=== PATIENT | female | born 1935 | race Caucasian/White ===

== ENCOUNTER 2016-10-09 08:39 | Observation (INO) | payer OTHER ==
--- NOTE | 2016-10-09 09:01 | CPEKG ---
Heart Rate: 91 RR Interval: 659 P-R Interval: 180 QRSD Interval: 80 QT Interval: 332 QTC Interval: 409 P [place]: 47 QRS [place]: -62 T Wave [place]: -18 EKG Severity - ABNORMAL ECG - EKG Impression: SINUS RHYTHM EKG Impression: MULTIPLE VENTRICULAR PREMATURE COMPLEXES EKG Impression: PROBABLE LEFT ATRIAL ABNORMALITY EKG Impression: INFERIOR INFARCT, AGE INDETERMINATE EKG Impression: NONSPECIFIC T ABNORMALITIES, ANTERIOR LEADS Electronically Signed By: Cliff Ulloa 09-Oct-2016 13:56:46
--- NOTE | 2016-10-09 09:03 | EDPHY ---
H & P Stated Complaint: Fever,coughing yellow mucous,h/a,sinus pressure; sxs x 3 days - Personal History Current Tetanus Diphtheria and Acellular Pertussis (TDAP): Yes - Medical/Surgical History Other PMH: osteoporosis - Social History Smoking Status: Current every day smoker Constitutional: Initial Vital Signs Temperature (C) 37.3 C 10/09/16 08:41 Heart Rate 85 10/09/16 08:41 Respiratory Rate 18 10/09/16 08:41 Blood Pressure 123/61 H 10/09/16 08:41 O2 Sat (%) 92 10/09/16 08:41 O2 Delivery Mode Room Air O2 (L/minute) 3 Allergies/Adverse Reactions: No Known Allergies Allergy (Unverified 10/09/16 08:45) Home Medications: Medication Instructions Recorded Acetaminophen [Tylenol ES 500 mg 1,000 mg PO Q6H PRN 10/09/16 (*)] Alendronate Sodium [Fosamax 70 MG 70 mg PO SA@0700 10/09/16 (*)] guaiFENesin/PSEUDOEPHEDRNE HCL 1 each PO DAILY 10/09/16 [Mucinex D ER Tablet] Medical Decision Making - Diagnostics Imaging Results: Imaging Impressions Chest X-Ray 10/09/16 09:24 Impression: 1. Diffuse interstitial lung disease, new since 2006. Consider high resolution noncontrast chest CT for further evaluation. 2. Cardiomegaly without failure. Imaging: I viewed and interpreted images myself ED Course/Re-evaluation: CHIEF COMPLAINT: Cough, malaise HISTORY OF PRESENT ILLNESS: The patient is an 80 y/o female arriving with her daughter complaining of worsening cough and malaise for the last 3 days. She has been traveling on several flights recently and returned last night. She describes a productive cough with "ugly" mucus and associated fever. She denies chest pain. She does not use home O2. She is normally healthy and has a medical history only significant for osteoporosis. REVIEW OF SYSTEMS: A 10 point review of systems was performed and is negative with the exception of the elements mentioned in the history of present illness. PHYSICAL EXAM: General Appearance: Alert, elderly, well-hydrated, appropriate, and actively coughing. SpO2 90% on 2LPM. Head: Atraumatic without scalp tenderness or obvious injury Eyes: Pupils equal, round, reactive to light and accommodation, EOMI, no trauma , no injection. Ears: Clear bilaterally, no perforation, normal landmarks Nose: Atraumatic, no rhinorrhea, clear. Throat: There is no erythema or exudates, no lesions, normal tonsils, mucus membranes moist. Neck: Supple, non-tender, no lymphadenopathy. Respiratory: No retractions, no distress, no wheezes, and no accessory muscle use. Consolidated, decreased breath sounds particularly at right base, diffuse rhonchi. Cardiovascular: Regular rate and rhythm, no murmurs, rubs, or gallops. Good capillary refill all extremities. Gastrointestinal: Abdomen is soft, non-tender, non-distended, no masses, no rebound, no guarding, no peritoneal signs. Musculoskeletal: Normal active ROM of all extremities, atraumatic. Neurological: Alert, appropriate, and interactive. Nonfocal neuro exam. Skin: No rashes, good turgor, no nodules on palpation. PAST MEDICAL HISTORY: Osteoporosis PAST SURGICAL HISTORY: Denies SOCIAL HISTORY: Daughters at bedside. Smoker. DIAGNOSTICS/PROCEDURES/CRITICAL CARE TIME: Chest x-ray: pneumonia right base The 12 lead EKG was interpreted by myself. Sinus mechanism rate 91 with inverted T waves in precordial leads. No prior EKGs available for comparison. See hard copy and/or "tracemaster" electronic copy for interpretation. DIFFERENTIAL DIAGNOSIS: The differential diagnosis for the patient's fever and hypoxemia included but was not limited to pneumonia, urinary tract infection, viral syndrome, meningitis, sepsis, myocardial infarction, acute mountain sickness, high altitude pulmonary edema, congestive heart failure, and pulmonary embolus. MEDICAL DECISION MAKING: This is a quite healthy 80 y/o female presenting with a 3-day history of worsening productive cough, malaise, and fever. She has diffuse rhonchi and decreased breath sounds worst in the right base on auscultation. She is hypoxemia at 90% on 2LPM O2. She does not meet sepsis criteria at this time. Plan for IV, labs including cultures and lactate, duo neb, chest x-ray, and EKG. Chest x-ray shows right-sided pneumonia. 750mg IV Levaquin administered. Patient will require admission for hypoxemia and pneumonia. Spoke with hospitalist service. Dr. Kan accepts admission for hypoxemia and pneumonia. Discussed work up and plan for admission with the patient. She agrees with plan. - Data Points Laboratory Results: Laboratory Results 10/09/16 09:12 10/09/16 09:12 10/09/16 10/09/16 10/09/16 09:22 09:12 09:12 WBC RBC Hgb Hct MCV MCH MCHC RDW Plt Count MPV Neut % (Auto) Lymph % (Auto) [place] % (Auto) Eos % (Auto) Baso % (Auto) Nucleat RBC Rel Count Absolute Neuts (auto) Absolute Lymphs (auto) Absolute Monos (auto) Absolute Eos (auto) Absolute Basos (auto) Absolute Nucleated RBC Immature Gran % Immature Gran # PT 14.4 SEC SEC (12.0-15.0) INR 1.13 (0.83-1.16) APTT 33.6 SEC SEC (23.0-38.0) VBG Lactic Acid 2.2 mmol/L H mmol/L (0.7-2.1) Sodium 136 mEq/L mEq/L (134-144) Potassium 4.1 mEq/L mEq/L (3.5-5.2) Chloride 102 mEq/L mEq/L (97-110) Carbon Dioxide 23 mEq/l mEq/l (22-31) Anion Gap 11 mEq/L mEq/L (8-16) BUN 15 mg/dL mg/dL (7-23) Creatinine 0.7 mg/dL mg/dL (0.6-1.0) Estimated GFR > 60 Glucose 158 mg/dL H mg/dL (70-100) Calcium 9.2 mg/dL mg/dL (8.5-10.4) Total Bilirubin 0.9 mg/dL mg/dL (0.1-1.4) 10/09/16 09:12 WBC 9.28 10^3/uL 10^3/uL (3.80-9.50) RBC 4.47 10^6/uL 10^6/uL (4.18-5.33) Hgb 14.1 g/dL g/dL (12.6-16.3) Hct 42.1 % % (38.0-47.0) MCV 94.2 fL fL (81.5-99.8) MCH 31.5 pg pg (27.9-34.1) MCHC 33.5 g/dL g/dL (32.4-36.7) RDW 12.2 % % (11.5-15.2) Plt Count 216 10^3/uL 10^3/uL (150-400) MPV 9.8 fL fL (8.7-11.7) Neut % (Auto) 83.3 % H % (39.3-74.2) Lymph % (Auto) 8.8 % L % (15.0-45.0) [place] % (Auto) 7.1 % % (4.5-13.0) Eos % (Auto) 0.1 % L % (0.6-7.6) Baso % (Auto) 0.3 % % (0.3-1.7) Nucleat RBC Rel Count 0.0 % % (0.0-0.2) Absolute Neuts (auto) 7.72 10^3/uL H 10^3/uL (1.70-6.50) Absolute Lymphs (auto) 0.82 10^3/uL L 10^3/uL (1.00-3.00) Absolute Monos (auto) 0.66 10^3/uL 10^3/uL (0.30-0.80) Absolute Eos (auto) 0.01 10^3/uL L 10^3/uL (0.03-0.40) Absolute Basos (auto) 0.03 10^3/uL 10^3/uL (0.02-0.10) Absolute Nucleated RBC 0.00 10^3/uL 10^3/uL (0-0.01) Immature Gran % 0.4 % % (0.0-1.1) Immature Gran # 0.04 10^3/uL 10^3/uL (0.00-0.10) PT INR APTT VBG Lactic Acid Sodium Potassium Chloride Carbon Dioxide Anion Gap BUN Creatinine Estimated GFR Glucose Calcium Total Bilirubin Medications Given: Discontinued Medications Albuterol/Ipratropium (Duoneb) 3 ml IH EDNOW ONE Stop: 10/09/16 09:20 Last Admin: 10/09/16 09:38 Dose: 3 ml Levofloxacin/Dextrose (Levaquin 750 Mg (Premix)) 150 mls @ 100 mls/hr IV EDNOW ONE PRN Reason: Protocol Stop: 10/09/16 10:52 Last Admin: 10/09/16 10:45 Dose: 150 mls Departure - Departure Disposition: [facility] Inpatient Acute Clinical Impression: Hypoxemia Pneumonia Qualifiers: Pneumonia type: due to unspecified organism Laterality: right Lung location: lower lobe of lung Qualified Code(s): J18.1 - Lobar pneumonia, unspecified organism Condition: Fair Report Scribed for: Cliff Ulloa Report Scribed by: Rachel Clark Date of Report: 10/09/16 Time of Report: 09:00
[2016-10-09] MEDS ORDERED: IPRATROPIUM/ALBUTEROL 3 ML DEYVIAL IH ONE (09:19)
[2016-10-09 09:22] LABS: % IMMATURE GRANULYOCYTES 0.4 % (0.0-1.1); ABSOLUTE IMMATURE GRANULOCYTES 0.04 10^3/uL (0.00-0.10); ADD DIFF? NO; ADD MORPH? NO; ADD SCAN? NO; ATYPICAL LYMPHOCYTE FLAG 0 (0-99); FRAGMENT RBC FLAG 0 (0-99); HEMATOCRIT 42.1 % (38.0-47.0); HEMOGLOBIN 14.1 g/dL (12.6-16.3); LEFT SHIFT FLG 10 (0-99); LIPEMIA HEMOLYSIS FLAG 80 (0-99); MEAN CELL HEMOGLOBIN 31.5 pg (27.9-34.1); MEAN CELL HEMOGLOBIN CONCENTR. 33.5 g/dL (32.4-36.7); MEAN CELL VOLUME 94.2 fL (81.5-99.8); MEAN PLATELET VOLUME 9.8 fL (8.7-11.7); PLATELET CLUMPS FLAG 0 (0-99); PLATELET COUNT 216 10^3/uL (150-400); RED BLOOD CELL COUNT 4.47 10^6/uL (4.18-5.33); RED CELL DISTRIBUTION WIDTH 12.2 % (11.5-15.2)
[2016-10-09 09:30] LABS: INR 1.13 (0.83-1.16); PROTIME(PATIENT) 14.4 SEC (12.0-15.0)
[2016-10-09 09:31] LABS: APTT 33.6 SEC (23.0-38.0)
[2016-10-09 09:33] LABS: ANION GAP 11 mEq/L (8-16); BILIRUBIN,TOTAL 0.9 mg/dL (0.1-1.4); CALCIUM 9.2 mg/dL (8.5-10.4); CARBON DIOXIDE 23 mEq/l (22-31); CHLORIDE 102 mEq/L (97-110); CREATININE 0.7 mg/dL (0.6-1.0); GLOMERULAR FILTRATION RATE > 60; GLUCOSE 158 mg/dL (70-100); POTASSIUM 4.1 mEq/L (3.5-5.2); SODIUM 136 mEq/L (134-144)
[2016-10-09] MEDS ORDERED: ACETAMINOPHEN 500 MG TAB ONE (10:28)
[2016-10-09 10:34] LABS: LACGHOST ORDER
[2016-10-09] MEDS ORDERED: ACETAMINOPHEN 325 MG TAB PO PRN (12:47)
[2016-10-09] MEDS ORDERED: ONDANSETRON DISINTEGRATING 4 MG TAB PO PRN (12:47)
[2016-10-09] MEDS ORDERED: ONDANSETRON 4 MG/2 ML VIAL IVP PRN (12:47)
[2016-10-09] MEDS ORDERED: ZOLPIDEM TARTRATE 5 MG TAB PO PRN (12:47)
[2016-10-09] MEDS: IPRATROPIUM/ALBUTEROL 3 ML DEYVIAL IH SCH ×2 (18:44→21:59)
[2016-10-09] MEDS ORDERED: SODIUM CL NASAL 45 ML BTL EACHNARE PRN (19:39)
[2016-10-10] MEDS: IPRATROPIUM/ALBUTEROL 3 ML DEYVIAL IH SCH ×2 (06:16→13:20)
[2016-10-10] MEDS ORDERED: ALENDRONATE SODIUM 70 MG TAB PO SCH (07:00)
[2016-10-10] MEDS ORDERED: ENOXAPARIN 40 MG/0.4 ML SYR SC SCH (09:00)
--- NOTE | 2016-10-10 11:05 | PDGENHP ---
History and Physical History and Physical: HISTORY AND PHYSICAL CC: Cough and shortness of breath HISTORY: This patient just return from a trip to [place] by airplane with a 24 hour flying time. She states that since arriving home she has had 3 days of cough and fever and is now developing some exertional dyspnea. This is fairly mild exertional dyspnea. She is not raising phlegm. She has no chest pain leg pain or leg swelling. She has no history of asthma or other lung disease or heart disease but she does have a decades long history of smoking and still smokes about 6 cigarettes daily. She has been treated with bronchodilators in the ER and feels somewhat better. She also received some antibiotic in the ER. ROS: A comprehensive 10 system review revealed no other significant findings PAST MEDICAL HISTORY: Hypothyroidism Osteopenia Bronchitis Pneumonia Ongoing tobacco abuse Basal cell carcinoma Skin FAMILY MEDICAL HISTORY: No heart or lung disease SOCIAL HISTORY: lives with her just returned from a long trip to [place] in the [place] and scan AV. MEDICATIONS: The patients list has been reconciled by our clinical pharmacist in the EMR. I have reviewed the list and ordered appropriate medicines. PHYSICAL EXAMINATION: Vital Signs: Initial vital signs were normal and initial recorded oxygen saturations were normal on room air but in the ER she did develop hypoxemia and was started on oxygen. There has been no fever here so far Examination: General: alert, oriented, good mentation, relaxed Skin: warm, dry, good color, no rash HEENT: normal Neck: no mass or jvd Resps: relaxed Lungs: Very diminished breath sounds but no abnormalities heard otherwise Heart: regular, no murmur Abdomen: soft, nondistended, nontender, +BS, no mass Upper Extremities: normal Lower Extremities: no edema, warm No Bleeding or bruising Neurologic: normal speech/language, normal ceramic chemist, no focal weakness IV site: looks normal LABORATORY DATA: Initial laboratory data in the ER were unremarkable. I ordered procalcitonin which is normal and respiratory viral panel which shows parainfluenza virus RADIOLOGY STUDIES: Chest x-ray with minimal interstitial abnormality on my reading of the films I wrote a CT scan of chest which has not been read by the radiologist but on my personal review of the films is remarkable only for a small nodular appearing infiltrate at the right lung. This is probably acute infiltrate but as she is a smoker this should be followed up with repeat CT in 6 months as she is a smoker ASSESSMENT: -acute hypoxemic respiratory failure -COPD exacerbation -parainfluenza virus respiratory infection -6 mm right lung nodule in a smoker, should be followed with repeat CT imaging in 6 months PLANS: Observe in the hospital overnight Discontinue antibiotics If she does well on bronchodilators here will probably be able to discharge in the morning I have reviewed the patient's case in detail with Dr. Cliff Ulloa
[2016-10-10 15:42] VITALS: BP 107/54; PULSE 63; RESP 16; TEMP 98.2; O2SAT 92
--- NOTE | 2016-10-10 16:02 | GDS ---
[f rep st] DISCHARGE SUMMARY DISCHARGE DIAGNOSES: 1. Acute hypoxemic respiratory failure due to parainfluenza viral upper respiratory infection. 2. Possible chronic obstructive pulmonary disease exacerbation. 3. 6 mm right lung nodule. HOSPITAL COURSE: Hypoxemia due to parainfluenza viral infection: The patient was admitted to the [facility], where she was started on DuoNeb treatments. She received a dose of Levaquin in the emergen cy department, but her antibiotics were not continued. On hospital day #1, the patient states she f eels much better. Her oxygen saturations are in the low 90s to 89 on room air. She is not having a ny fevers or chills. A CAT scan of the chest done prior to discharge revealed bilateral central bro nchiectasis with some mucous plugging as well as a 6.1 mm pulmonary nodule. PHYSICAL EXAMINATION: VITAL SIGNS: On the day of discharge, blood pressure 101/62, pulse 66, respi ratory rate 16, O2 sat 94% on 1 L, temperature afebrile. GENERAL: No acute distress. HEART: S1, S2. LUNGS: Clear with some coarse breath sounds. There is no wheezing. ABDOMEN: Soft. EXTREMIT IES: No edema. PERTINENT LABORATORY AND X-RAY DATA: Chest CT done 10/09/2016, refer to report. DISCHARGE MEDICATIONS: Please refer to discharge medication reconciliation in [facility] for full det ails. DISCHARGE INSTRUCTIONS: The patient will be discharged from the hospital off antibiotics. Once aga in, it appears that her respiratory status is improving. She should be considered to be started on prednisone and possibly an oral by antibiotic if her symptoms are worsening over the next few days. She was urged to seek follow up with her primary care provider in the next few days or come to the emergency department if her symptoms worsen. /[id number]/MODL
== END 2016-10-10 17:13 | disposition home or self-care (01) ==
LOC: F3E 12:12 → OBSVTOIN 12:47 → INTOOBSV 12:47
PROVIDERS: ADMIT Internal Medicine; ATTEND Family Medicine
DX: J96.01 Acute respiratory failure with hypoxia (principal); J11.1 Influenza due to unidentified influenza virus with other respiratory manifestations; J44.1 Chronic obstructive pulmonary disease with (acute) exacerbation; R91.1 Solitary pulmonary nodule; F17.210 Nicotine dependence, cigarettes, uncomplicated; J84.9 Interstitial pulmonary disease, unspecified; I51.7 Cardiomegaly; M81.0 Age-related osteoporosis without current pathological fracture; E03.9 Hypothyroidism, unspecified; Z85.828 Personal history of other malignant neoplasm of skin
CPT/HCPCS: 71020; 71250; 93005; 96365; 99285; G0378; J1650; J1956

== ENCOUNTER 2017-03-23 14:57 | Emergency (ER) | payer OTHER ==
[2017-03-23 15:03] VITALS: TEMP 98.4
--- NOTE | 2017-03-23 15:19 | EDPHY ---
H & P Time Seen by Provider: 03/23/17 15:05 HPI/ROS: CHIEF COMPLAINT: Right hand injury after fall HISTORY OF PRESENT ILLNESS: 81-year-old female presents to the emergency department by private vehicle after she fell just 15 minutes prior to arrival injuring her right hand. The patient states that she tripped over the curb and fell onto her right hand. She complains of pain isolated especially to the right 2nd and 3rd fingers. Denies pain in her right wrist or elbow. Denies pain in her right shoulder. Denies hitting her head or losing consciousness. Denies numbness or tingling in her fingers. Denies chest pain or difficulty breathing. Denies any presyncopal symptoms prior to her fall. Denies any other trauma or injury. REVIEW OF SYSTEMS: Constitutional: No fever, no chills. Eyes: No double or blurry vision. ENT: No sore throat. Respiratory: No cough, no shortness of breath. Cardiac: No chest pain. Gastrointestinal: No abdominal pain, vomiting or diarrhea. Genitourinary: No dysuria. Musculoskeletal: No neck or back pain. Skin: No rashes. Neurological: No headache. Past Medical/Surgical History: Osteoporosis, kidney stones, orthopedic surgery right humerus Social History: Patient is a and is retired. She lives in [place]. Smoking Status: Current every day smoker Physical Exam: General Appearance: Alert, no distress. No visible signs of trauma to her head. She is mentating normally and answering questions appropriately. Eyes: Pupils equal and round. Extraocular motions are all intact. ENT: Mouth: Mucous membranes moist. Respiratory: No wheezing, rhonchi, or rales, lungs are clear to auscultation. Cardiovascular: Regular rate and rhythm. Gastrointestinal: Abdomen is soft and nontender, no masses, no rebound or guarding, bowel sounds normal. Neurological: Alert and oriented x 3, cranial nerves II through XII grossly intact Skin: Warm and dry, no rashes. No abrasion or puncture wound noted. Musculoskeletal: Nontender to palpate along the cervical, thoracic or lumbar spine. Neck is supple. Extremities: Deformity noted to the right index finger at the MCP joint. Tender to palpate over the proximal phalanx of the right 2nd finger and mildly tender over the right 3rd finger over the proximal phalanx. Normal sensation to light touch with normal 2 point discrimination. Her ring on her 4th finger had to be cut off as the finger was quite swollen and the ring was not easily removed without cutting it. Full range of motion of her right wrist and right elbow. Psychiatric: Patient is oriented X 3, there is no agitation. Constitutional: Initial Vital Signs Temperature (C) 36.9 C 03/23/17 14:59 Heart Rate 65 03/23/17 14:59 Respiratory Rate 16 03/23/17 14:59 Blood Pressure 136/70 H 03/23/17 14:59 O2 Sat (%) 96 03/23/17 14:59 O2 Delivery Mode Room Air Allergies/Adverse Reactions: No Known Allergies Allergy (Unverified 03/23/17 14:58) Home Medications: Medication Instructions Recorded Acetaminophen [Tylenol ES 500 mg 1,000 mg PO Q6H PRN 10/09/16 (*)] Alendronate Sodium [Fosamax 70 MG 70 mg PO SA@0700 10/09/16 (*)] guaiFENesin/PSEUDOEPHEDRNE HCL 1 each PO DAILY 10/09/16 [Mucinex D ER Tablet] Albuterol 17 gm IH Q6 PRN #1 aerosol 10/10/16 Doxycycline Hyclate 100 mg PO BID #14 capsule 10/10/16 Medical Decision Making - Diagnostics Imaging Results: Imaging Impressions Hand X-Ray 03/23/17 15:10 Impression: Acute angulated, displaced, and rotated fractures of the second, third, and fourth proximal phalanges. Imaging: I viewed and interpreted images myself Procedures: After consent was obtained from the patient, the base of the right 2nd finger, right 3rd finger, and right 4th finger were cleansed with alcohol wipes. Digital block was performed using 1% lidocaine without epinephrine 0.5% bupivacaine without epinephrine to each of the 2nd, and 3rd, and 4th fingers of the right hand. Gentle traction was used and the fingers were easily relocated. The patient was placed in a volar Ortho Glass splint and sling and examined post application in good placement with normal ONCOLOGY SPECIALIST. Patient tolerated this quite well. This was performed by myself. ED Course/Re-evaluation: 81-year-old female presents to the emergency department with fracture dislocations of her right 2nd, 3rd, and 4th fingers. See procedure note. Splint was applied. I spoke with Dr. Reji Stafford his physician assistant foreman, head or, who stated that Dr. Reji Stafford is very busy and booked tomorrow and he would be able to see her next week. The patient asked for referral to another orthopedic hand surgeon to see if she can get in sooner. The fingers have been reduced. These are closed injury. ONCOLOGY SPECIALIST is intact. She has been immobilized. She understands that these may require surgical pinning and she needs close follow up with orthopedic hand surgeon for this. The case was discussed with Dr. Cliff Ulloa, secondary supervising physician, who did not directly evaluate the patient but agrees with treatment and plan. Differential Diagnosis: Including but not limited to fracture, dislocation, contusion, sprain Departure - Departure Disposition: Home, Routine, Self-Care Clinical Impression: Dislocated finger Qualifiers: Encounter type: initial encounter Qualified Code(s): S63.259A - Unspecified dislocation of unspecified finger, initial encounter Right hand fracture Qualifiers: Encounter type: initial encounter Fracture type: closed Qualified Code(s): S62.91XA - Unspecified fracture of right wrist and hand, initial encounter for closed fracture Condition: Good Instructions: Finger Fracture (ED), Finger Dislocation (ED) Additional Instructions: Call tomorrow to arrange follow-up with the orthopedic surgeon, Dr. Reji Stafford. Tell them that you were seen in the emergency department in you had fracture dislocations of your right 2nd, 3rd, and 4th fingers which have all been reduced and splinted. Tell them that this is on your dominant hand. Referrals: Reji Stafford MD [Medical Doctor] - 2-3 days without fail (Orthopedic surgeon on-call) Michael Bloom MD [Medical Doctor] - As per Instructions Jose A Fuentes MD [Medical Doctor] - As per Instructions (Orthopedic hand surgeon)
[2017-03-23 16:41] VITALS: O2SAT 95
[2017-03-23 16:53] VITALS: BP 118/64; PULSE 60; RESP 16
== END 2017-03-23 16:52 | disposition home or self-care (01) ==
PROC: 0RSWXZZ Reposition Right Finger Phalangeal Joint, External Approach (ICD-10-PCS; principal; 2017-03-23)
DX: S62.610A Displaced fracture of proximal phalanx of right index finger, initial encounter for closed fracture (principal); S62.612A Displaced fracture of proximal phalanx of right middle finger, initial encounter for closed fracture; S62.614A Displaced fracture of proximal phalanx of right ring finger, initial encounter for closed fracture; F17.200 Nicotine dependence, unspecified, uncomplicated; W10.1XXA Fall (on)(from) sidewalk curb, initial encounter
CPT/HCPCS: 26770; 73130; 99283; A4565